=== PATIENT | male | born 1985 | race Caucasian/White ===

== ENCOUNTER 2024-01-23 15:08 | Emergency (ER) | payer BC, SELFPAY ==
--- NOTE | ~2024-01-23 | CT_ITS ---
EXAMINATION: CT abdomen pelvis w con DATE: 01/23/2024 16:10 INDICATION: Upper abdominal pain. Bloating. Nausea. Weight loss. TECHNIQUE: Computed tomography (CT) of the abdomen and pelvis was performed with 100 mL Omnipaque 350 intravenous contrast. Automated exposure control and iterative reconstruction technique were employe d. The dose-length product was 581.28 mGy-cm. COMPARISON: None. FINDINGS: The visualized portions of the lung bases demonstrate minimal atelectasis. No pleural effus ion. The heart size is normal. No pericardial effusion. The liver, gallbladder, spleen, pancreas, adr enal glands, and left kidney are normal. There is a 15 mm cyst in right kidney. There are no dilated loops of bowel. The appendix is normal. There are no pathologically enlarged lymph nodes. There is no free intraperitoneal fluid. There is mild lumbar spondylosis. IMPRESSION: 1. No etiology for the patient's symptoms. Reviewed, dictated and finalized at location E.
[2024-01-23 15:12] VITALS: BP 158/87; PULSE 86; RESP 16; TEMP 36.7; O2SAT 99
--- NOTE | 2024-01-23 15:17 | ED.ABDPAIN ---
HPI - Abdominal Pain General Chief Complaint: Abdominal Pain Stated Complaint: UPPER ABD PAIN XWKS Time Seen by Provider: 01/23/24 16:02 Focused HPI: GENERAL: Well-appearing, well-nourished, and in no acute distress. HEAD: Normocephalic, atraumatic. CHEST: Clear to auscultation. No respiratory distress. HEART: Regular rate and rhythm. NEURO: Alert and oriented x3. ABD: Diffuse abdominal discomfort Patient screened in triage and initial orders placed. Additional care and disposition to be based upon diagnostic testing and treatment. 38-year-old nontoxic-appearing male history of hypertension presents emergency room for evaluation of diffuse abdominal pain and bloating x2 weeks. Patient reports occasional nausea with no vomiting or diarrhea. Denies fever. States has experience frequent belching. No history of GERD H pylori. Patient states he has taken Tums, Gas-X, Pepto with no relief. Related Data Home Medications Medication Instructions Recorded Confirmed atorvastatin 20 mg tablet 20 mg PO DAILY 01/28/24 02/06/24 losartan 50 mg tablet 50 mg PO DAILY 01/28/24 02/06/24 omeprazole 40 mg capsule,delayed 40 mg PO DAILY 02/06/24 02/06/24 release Allergies Allergy/AdvReac Type Severity Reaction Status Date / Time No Known Allergies Allergy Verified 02/18/24 09:27 [facility] Social History Social History Years smoked: 15 Smoking status: Former smoker Tobacco type: cigarettes and e-cigarettes/vaping Additional smoking assessment comments: Stopped Vaping 01/2024 Alcohol intake: former Living arrangements: with family Spiritual care concerns: No Course Vital Signs Vital signs: Vital Signs Temperature 36.7 C 01/23/24 15:12 Pulse Rate 86 01/23/24 15:12 Respiratory Rate 16 01/23/24 15:12 Blood Pressure 158/87 H 01/23/24 15:12 Pulse Oximetry 99 01/23/24 15:12 Temperature 36.7 C 01/23/24 15:12 Pulse Rate 86 01/23/24 15:12 Respiratory Rate 16 01/23/24 15:12 Blood Pressure 158/87 H 01/23/24 15:12 Pulse Oximetry 99 01/23/24 15:12 MDM - Abdominal Pain Lab Data 01/23/24 15:32 01/23/24 15:32 Labs: Lab Results 01/23/24 01/23/24 Range/Units 15:32 15:54 WBC 8.6 (4.5-10.0) K/mm3 RBC 5.25 (4.6-6.20) M/mm3 Hgb 15.8 (14.0-18.0) g/dL Hct 45.4 (42.0-52.0) % MCV 86.5 (80-100) fl MCH 30.1 (26-34) pg MCHC 34.8 (32-36) g/dl RDW 12.9 (11.5-14.5) % Plt Count 361 (150-375) k/mm3 MPV 10.3 (7.4-10.4) fl Immature Gran % (Auto) 0.1 (0-0.5) % Neut % (Auto) 68.9 (45.5-73.1) % Lymph % (Auto) 23.9 (18.3-44.2) % [place] % (Auto) 6.7 (2.6-8.5) % Eos % (Auto) 0.2 (0-4.4) % Baso % (Auto) 0.2 (0.2-1.2) % Lymph # (Auto) 2.05 (0.9-3.2) K/mm3 Morris # (Auto) 0.6 (0.1-0.6) K/mm3 Eos # (Auto) 0.0 (0-0.3) K/mm3 Baso # (Auto) 0.0 (0.0-0.1) K/mm3 Abs Immat Gran (auto) 0.01 (0.00-0.031) K/mm3 Absolute Neuts (auto) 5.9 (1.3-6.7) K/mm3 Absolute Nucleated RBC 0.000 (0.0-0.012) K/mm3 Nucleated RBC % 0.0 (0.0-0.2) % Sodium 137 (137-145) mmol/L Potassium 3.9 (3.4-5.0) mmol/L Chloride 102 (98-107) mmol/L Carbon Dioxide 24 (22-30) mmol/L Anion Gap 11 (4-12) mmol/L BUN 11 (9-20) mg/dL Creatinine 0.80 (0.7-1.3) mg/dL Estim Creat Clear Calc 109 ml/min Estimated GFR > 60 (59 - ) Glucose 89 (65-110) mg/dL Calcium 9.9 (8.4-10.2) mg/dL Total Bilirubin 1.3 (0.2-1.3) mg/dL AST 31 (17-59) U/L ALT 49 (6-50) U/L Alkaline Phosphatase 58 (38-126) U/L Total Protein 9.0 H (6.3-8.2) g/dL Albumin 5.3 H (3.5-5.1) g/dL Lipase 121 (23-300) U/L Urine Color Yellow (Yellow) Urine Appearance Clear (Clear) Urine pH 6.5 (5.0-9.0) Ur Specific [place] 1.015 (1.001-1.035) Urine Protein Negative (Negative) mg/dL Urine Glucose (UA) Negative (Negative)
[2024-01-23] MEDS: SODIUM CHLORIDE 0.9% IV 1,000 ML 999 ML IV CONT ×2 (15:40→16:34)
[2024-01-23 15:41] LABS: Basophils Percent Auto 0.2 % (0.2-1.2); Eosinophils Percent Auto 0.2 % (0-4.4); Hematocrit 45.4 % (42.0-52.0); Hemoglobin 15.8 g/dL (14.0-18.0); Immature Granulocyte Absolute 0.01 K/mm3 (0.00-0.031); Immature Granulocyte Percent A 0.1 % (0-0.5); Lymphocytes Absolute Auto 2.05 K/mm3 (0.9-3.2); Lymphocytes Percent Auto 23.9 % (18.3-44.2); Mean Corpuscular HGB Conc 34.8 g/dl (32-36); Mean Corpuscular Hemoglobin 30.1 pg (26-34); Mean Corpuscular Volume 86.5 fl (80-100); Mean Platelet Volume 10.3 fl (7.4-10.4); Monocytes Absolute Auto 0.6 K/mm3 (0.1-0.6); Monocytes Percent Auto 6.7 % (2.6-8.5); Neutrophils Absolute Auto 5.9 K/mm3 (1.3-6.7); Neutrophils Percent Auto 68.9 % (45.5-73.1); Platelet Count Result 361 k/mm3 (150-375); Red Blood Count 5.25 M/mm3 (4.6-6.20); Red Cell Distribution Width 12.9 % (11.5-14.5); White Blood Count 8.6 K/mm3 (4.5-10.0)
[2024-01-23 15:50] LABS: Alanine Aminotransferase 49 U/L (6-50); Albumin Level 5.3 g/dL (3.5-5.1); Alkaline Phosphatase 58 U/L (38-126); Anion Gap 11 mmol/L (4-12); Aspartate Amino Transferase 31 U/L (17-59); Bilirubin,Total 1.3 mg/dL (0.2-1.3); Blood Urea Nitrogen 11 mg/dL (9-20); Calcium 9.9 mg/dL (8.4-10.2); Carbon Dioxide 24 mmol/L (22-30); Chloride 102 mmol/L (98-107); Estimated CRCL calculation 109 ml/min; Estimated Glomerular Filt Rate > 60; Glucose 89 mg/dL (65-110); Lipase 121 U/L (23-300); Potassium 3.9 mmol/L (3.4-5.0); Sodium 137 mmol/L (137-145)
[2024-01-23 16:01] LABS: Appearance Urine Clear (Clear); Bilirubin Urine Negative (Negative); Blood Urine Negative (Negative); Color Urine Yellow (Yellow); Glucose Urine UA Negative (Negative); Ketones Urine 2+ mg/dL (Negative); Leukocyte Esterase Ur Negative LEU/UL (Negative); Nitrate Urine Negative (Negative); Protein Urine Negative (Negative); Specific Grav Ur 1.015 (1.001-1.035); pH Urine 6.5 (5.0-9.0)
[2024-01-23 16:03] LABS: Add Urine Microscopic? NO
--- NOTE | 2024-01-23 16:03 | ED.ABDPAIN ---
HPI - Abdominal Pain General Chief Complaint: Abdominal Pain Stated Complaint: UPPER ABD PAIN XWKS Time Seen by Provider: 01/23/24 16:02 Source: patient and family Mode of arrival: ambulatory Limitations: no limitations History of Present Illness HPI narrative: 38 years old white male complaining of abdominal bloating for the last 2 weeks, intermittent, feels better when he drinks fluids, and belching. And passing gas. History of hypertension, he vapes, drinks occasionally, no history of abdominal surgery. Related Data Allergies Allergy/AdvReac Type Severity Reaction Status Date / Time No Known Allergies Allergy Verified 01/23/24 15:35 Review of Systems Review of Systems: All systems reviewed & are unremarkable except as noted in HPI and below Exam Narrative: General appearance: Well-developed, well-nourished Skin: Normal color Head: Normocephalic, nontraumatic Eyes: Clear conjunctiva ENT: Oropharynx normal, ears normal, nose normal Neck: Supple, nontender Chest and respiratory: Airway patent, no respiratory distress, no accessory muscle use Heart: Regular rate/rhythm Abdomen: Soft, nontender, no organomegaly, quiet bowel sounds , slightly distended Vascular: Normal peripheral pulses, normal capillary refill. 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, no gross motor deficit Course Vital Signs Vital signs: Vital Signs Temperature 36.7 C 01/23/24 15:12 Pulse Rate 86 01/23/24 15:12 Respiratory Rate 16 01/23/24 15:12 Blood Pressure 158/87 H 01/23/24 15:12 Pulse Oximetry 99 01/23/24 15:12 Temperature 36.7 C 01/23/24 15:12 Pulse Rate 86 01/23/24 15:12 Respiratory Rate 16 01/23/24 15:12 Blood Pressure 158/87 H 01/23/24 15:12 Pulse Oximetry 99 01/23/24 15:12 MDM - Abdominal Pain MDM Narrative Medical decision making narrative: patient presents with noted abdomen Differential diagnosis colitis, gastritis, cholecystitis Blood workup today showed no significant abnormality to explain patient condition, clear urine CT scan of the abdomen and pelvis with IV contrast showed no significant abnormality to explain patient condition. Diet producing excessive gas is my concern. Patient probably need GI workup. Discharged on Bentyl and to follow-up with mathematics instructor for further evaluation Differential Diagnosis Differential diagnosis: Likely other ( as above) Medical Records Attestation: I reviewed the patient's medical records. Lab Data Attestation: I reviewed the patient's lab results. 01/23/24 15:32 01/23/24 15:32 Labs: Lab Results 01/23/24 01/23/24 Range/Units 15:32 15:54 WBC 8.6 (4.5-10.0) K/mm3 RBC 5.25 (4.6-6.20) M/mm3 Hgb 15.8 (14.0-18.0) g/dL Hct 45.4 (42.0-52.0) % MCV 86.5 (80-100) fl MCH 30.1 (26-34) pg MCHC 34.8 (32-36) g/dl RDW 12.9 (11.5-14.5) % Plt Count 361 (150-375) k/mm3 MPV 10.3 (7.4-10.4) fl Immature Gran % (Auto) 0.1 (0-0.5) % Neut % (Auto) 68.9 (45.5-73.1) % Lymph % (Auto) 23.9 (18.3-44.2) % [place] % (Auto) 6.7 (2.6-8.5) % Eos % (Auto) 0.2 (0-4.4) % Baso % (Auto) 0.2 (0.2-1.2) % Lymph # (Auto) 2.05 (0.9-3.2) K/mm3 [place] # (Auto) 0.6 (0.1-0.6) K/mm3 Eos # (Auto) 0.0 (0-0.3) K/mm3 Baso # (Auto) 0.0 (0.0-0.1) K/mm3 Abs Immat Gran (auto) 0.01 (0.00-0.031) K/mm3 Absolute Neuts (auto) 5.9 (1.3-6.7) K/mm3 Absolute Nucleated RBC 0.000 (0.0-0.012) K/mm3 Nucleated RBC % 0.0 (0.0-0.2) % Sodium 137 (137-145) mmol/L Potassium 3.9 (3.4-5.0) mmol/L Chloride 102 (98-1
== END 2024-01-23 18:32 | disposition home or self-care (01) ==
PROVIDERS: Nurse Practitioner Family; Emergency Provider Emergency Medicine; PCP Family Medicine
DX: R14.0 Abdominal distension (gaseous) (principal); I10 Essential (primary) hypertension; F17.290 Nicotine dependence, other tobacco product, uncomplicated
CPT/HCPCS: 36415; 74177; 80053; 81003; 83690; 85025; 96360; 96361; 99284; J7030; Q9967

== ENCOUNTER 2024-02-18 02:39 | Day surgery (SDC) | payer BC, SELFPAY ==
[2024-02-06 16:12] VITALS: BMI 26.0
[2024-02-18] MEDS: LACTATED RINGERS 1,000 ML 150 ML IV CONT (09:25)
[2024-02-18 09:28] VITALS: BP 108/72; PULSE 92; RESP 18; TEMP 36.3; O2SAT 100
--- NOTE | 2024-02-18 09:47 | P.PNAN_ITS ---
Anes - Initial Pre Proc Eval Procedure: Operation Date: 02/18/24 10:30 Proposed Procedures p Esophagogastroduodenoscopy & Colonoscopy - Blsa Scott MD Date/Time: 02/18/24 09:47 Surgeon: Blas Scott MD Pre Op Diagnosis: LUQ Pain, Abn. Wt. Loss, Nausea, CIBH, Patient Data Age: 38 Gender: M Height: 1.75 m Weight: 76.4 kg Last Vital Signs Temp 97.3 F L 02/18/24 09:28 Pulse 92 02/18/24 09:28 Resp 18 02/18/24 09:28 BP 108/72 02/18/24 09:28 Pulse Ox 100 02/18/24 09:28 O2 Del Method Room Air 02/18/24 09:28 Allergies Allergy/AdvReac Type Severity Reaction Status Date / Time No Known Allergies Allergy Verified 02/18/24 09:27 Home Medications Medication Instructions Recorded Confirmed Type atorvastatin 20 mg tablet 20 mg PO DAILY 01/28/24 02/06/24 History losartan 50 mg tablet 50 mg PO DAILY 01/28/24 02/06/24 History omeprazole 40 mg capsule,delayed 40 mg PO DAILY 02/06/24 02/06/24 History release Patient hx anesthesia problems: none Family hx anesthesia problems: none Results Review: All pre-operative results and documents have been reviewed as part of the pre- operative evaluation. [facility] Social History Social History Years smoked: 15 Smoking status: Former smoker Tobacco type: cigarettes and e-cigarettes/vaping Additional smoking assessment comments: Stopped Vaping 01/2024 Alcohol intake: former Living arrangements: with family Spiritual care concerns: No Anes - Eval Final PreProcedure Day of Procedure 02/18/24 09:47 Patient weight: normal Heart: regular rate and rhythm Lungs: clear to auscultation Airway: Mallampati scale class II Neurological: alert and oriented Last oral intake: >/= 8 hours ASA classification: II Emergent: no Anesthetic plan: proceed Anesthesia type and monitoring: general GIVS and standard monitoring Results Review: All pre-operative results and documents have been reviewed as part of the pre- operative evaluation. Informed Consent: The patient's anesthetic plan and its attendant risks and benefits were discussed with the patient/family/POA. Questions were solicited and answers provided to the satisfaction of the patient/family/POA.
--- NOTE | 2024-02-18 10:00 | WPDHPUPDATE1 ---
History and Physical Update Update Date/Time: 02/18/24 10:00 History and Physical has been reviewed, including an updated exam of the patient. There are NO changes in the patient's condition. Risks, benefits, and alternatives have been discussed and questions answered. Patient agrees to proceed with procedure.
--- NOTE | 2024-02-18 10:27 | SUR.OPER ---
EGD START 1008, END 1012 COLONOSCOPY START 1017, END 1026
[2024-02-18 10:29] VITALS: BP 92/56; PULSE 77; RESP 18; O2SAT 98
[2024-02-18 10:39] VITALS: BP 91/52; PULSE 83; RESP 22; O2SAT 100
[2024-02-18 10:49] VITALS: BP 102/70; PULSE 87; RESP 21; O2SAT 97
== END 2024-02-18 10:59 | disposition home or self-care (01) ==
PROVIDERS: PCP Family Medicine; Visit Provider Internal Medicine Gastroenterology
PROC: 0DJ08ZZ Inspection of Upper Intestinal Tract, Via Natural or Artificial Opening Endoscopic (ICD-10-PCS; CPT 43235; principal; 2024-02-18 10:30)
DX: K64.8 Other hemorrhoids (principal); I10 Essential (primary) hypertension; E78.5 Hyperlipidemia, unspecified; Z87.891 Personal history of nicotine dependence; Z80.0 Family history of malignant neoplasm of digestive organs
CPT/HCPCS: 43239; 45378; 88305; J2704; J7120